=== PATIENT | male | born 1950 | race Caucasian/White ===

== ENCOUNTER 2024-11-29 06:09 | Inpatient (IN) ==
--- NOTE | 2024-11-29 06:20 | Emergency Department Note ---
Impression & Plan Atrial flutter with rapid ventricular response, Elevated troponin, On apixaban therapy, Hypokalemia, Low magnesium level ED Provider Note NAME: JASIEL PATTON AGE: 74 SEX: M : 1950 ARRIVES VIA: Walk-In INFORMANT: Patient ED PROVIDER(S): Seth Katz MD CHIEF COMPLAINT: Palpitations, h/o paroxysmal atrial fibrillation PLAN: Disposition: Admit MEDICAL DECISION MAKING: The patient is a pleasant 74 gentleman with a past medical history of paroxysmal atrial fibrillation on Eliquis with a history of a prescription metoprolol use as needed for recurrence of atrial fibrillation with RVR, hypertension, hypothyroidism who presents to the emergency department via walk-in for evaluation of acute onset of tachycardia in the 140s-160s which she noticed around 4 AM this morning on his smart watch. The patient is a [employer] and is visiting [employer] from his home in [place], [place], to attend the [employer] with his grandson. Patient denies any chest pain, shortness of breath, dizziness. Patient reports he forgot his prescription of metoprolol at home in [place] as he is traveling to [place] this weekend with his grandson to go to the [employer]. Patient reports that he admits his diet has been bad since he has been traveling eating a lot of takeout. He admits he may be dehydrated. He did have a couple of beers last night which is not typical for him. He reports having some indigestion yesterday but this resolved. He denies any recent illness including fevers, cough, congestion, GI or symptoms. On evaluation patient no acute distress, afebrile with heart rate in the 140s- 160s and suspected atrial flutter. Vital signs are otherwise stable. Appears clinically dry. EKG without overt acute ischemia. CXR negative for acute cardiopulmonary process per my personal preliminary review/interpretation. WBC, platelets within normal limits. H/H 11.9/34.4 without prior for comparison. Chemistry without metabolic acidosis. BUNs/creatinine 22 consistent with patient's clinically dry appearance. Magnesium 1.7 and potassium 2.8 with repletion provided. Initial high styptic troponin 84 with repeat 374 which is nonspecific and may be related to ongoing RVR since last night. Lipase is not elevated. TSH within normal limits. UA without evidence of infection. Patient was treated with IV hydration and subsequent 5 mg IV Lopressor x 3 but with heart rate remaining in the 140s. Given the patient's rising troponin and persistent RVR the patient ultimately did agree with plan for admission for further management. Case was discussed with Dr. [facility], who will evaluate the patient for admission. We agreed to proceed with initiation of diltiazem. 5 mg Diltiazem IV bolus with drip initiated. Of note, the patient did subsequently spontaneously cardiovert. Further management per admitting team. Triage Nursing notes reviewed and agree them. Prior/external medical records reviewed Vital Signs: reviewed Differential diagnosis: Premature contractions, electrolyte abnormality, cardiac dysrhythmia, thyroid dysfunction, pulmonary embolism, infection, gastrointestinal, as well as other pathologies. ER treatment provided: See below. Diagnostics interpreted by me: ECG: Suspected atrial flutter with RVR, 147 bpm, right bundle branch block, left anterior fascicular block, LVH, no overt ST elevation or depression, QTc 563, QRS 120. Cardiac Monitoring: An order for continuous cardiac monitoring was placed and demonstrated Suspected atrial flutter with RVR, 147 bpm, no ectopy. Laboratory studies: See below Imaging studies: See below Consultation(s): [facility] HPI: Per MDM. ROS: See above HPI for pertinent positives & negatives. A total of 10 systems reviewed and were otherwise negative. VITALS:See Below PHYSICAL EXAMINATION: GENERAL: Awake, alert, well-appearing, in no distress HENT: Normocephalic, atraumatic. Oropharynx with dry mucous membranes and otherwise unremarkable. EYES: Normal conjunctiva. Sclera non-icteric. NECK: Supple. No nuchal rigidity. FROM. No JVD. RESPIRATORY: Clear to auscultation. CARDIAC: Tachycardic rate, normal rhythm. Extremities warm and well perfused. Pulses equal. ABDOMEN: Soft, non-distended. No tenderness to palpation. No rebound or guarding. No masses. MUSCULOSKELETAL: Chest examination reveals no tenderness. The back is symmetrical on inspection without obvious abnormality. There is no CVA tenderness to palpation. No joint edema. LOWER EXTREMITIES: Calves are equal size bilaterally and non-tender. No edema. No discoloration. NEURO: Normal sensorium. No sensory or motor deficits noted. SKIN: No rash or jaundice noted. ED COURSE: Critical Care: I have personally spent greater than 45 minutes of critical care time in the direct management of this patient. This includes bedside care, interpretation of diagnostic studies, and testing, discussion with consultants, patient, and family members, and other required patient management activities. This 45 minutes is in excess of all separately billable procedures. Seth Katz MD Past Med/Surg History Problem List (Updated 11/29/24 @ 15:50 by Seth Katz MD) Low magnesium level (Acute) Hypokalemia (Acute) On apixaban therapy (Acute) Atrial flutter with rapid ventricular response (Acute) History of atrial fibrillation Atrial fibrillation Tachycardia Elevated troponin (Acute) Hypothyroidism Diabetes mellitus type 2, noninsulin dependent Hypertension Atrial fibrillation with rapid ventricular response Social History Smoking Status: Never smoker Preferred Language: Tajik Feels Safe at Home: Yes Allergies Allergies Allergy/AdvReac Type Severity Reaction Status Date / Time No Known Allergies Allergy Unverified 11/29/24 11:36 Home Meds Home Medications Medication Instructions Recorded Confirmed apixaban 5 mg tablet (Eliquis) 5 mg PO BID 11/29/24 11/29/24 atorvastatin 40 mg tablet 40 mg PO HS 11/29/24 11/29/24 levothyroxine 88 mcg tablet 88 mcg PO DAILY 11/29/24 11/29/24 (Synthroid) losartan 25 mg tablet 25 mg PO HS 11/29/24 11/29/24 metformin 1,000 mg tablet 1,000 mg PO BID 11/29/24 11/29/24 metoprolol succinate 25 mg 25 mg PO DAILY PRN Afib 11/29/24 11/29/24 tablet,extended release 24 hr tamsulosin 0.4 mg capsule 0.4 mg PO HS 11/29/24 11/29/24 tirzepatide 5 mg/0.5 mL 5 mg subcut WK 11/29/24 11/29/24 subcutaneous pen injector (Daniel) Results & Data (ED) Vital Signs Vital Signs - 24 hr 11/29/24 06:11 11/29/24 06:22 11/29/24 06:41 Temperature 36.4 C L Temperature Source Oral Pulse Rate 146 H 147 H Pulse Rate [Right Finger] Pulse Rhythm Pulse Rhythm [Right Finger] Pulse Strength [Right Finger] Respiratory Rate 20 Respiratory Effort / Characteristics Respiratory Depth Respiratory Pattern Blood Pressure 108/67 Blood Pressure [Right Arm] Blood Pressure Mean 80 Blood Pressure Mean [Right Arm] Blood Pressure Position [Right Arm] Pulse Oximetry 98 Oxygen Delivery Method Room Air Room Air Sepsis Recent Fever Within 48 Hours No Sepsis New/Unexplained Change in Mental Status No Sepsis Action Taken by Nursing No Action Required 11/29/24 06:41 11/29/24 06:41 11/29/24 07:45 Temperature Temperature Source Pulse Rate 144 H 148 H Pulse Rate [Right Finger] 144 H Pulse Rhythm Regular Pulse Rhythm [Right Finger] Irregular Pulse Strength [Right Finger] Normal Respiratory Rate 18 18 Respiratory Effort / Characteristics Non-Labored Spontaneous Respiratory Depth Normal Respiratory Pattern Regular Blood Pressure 113/65 Blood Pressure [Right Arm] 104/72 Blood Pressure Mean Blood Pressure Mean [Right Arm] 82 Blood Pressure Position [Right Arm] Lying Pulse Oximetry 98 98 Oxygen Delivery Method Room Air Room Air Sepsis Recent Fever Within 48 Hours Sepsis New/Unexplained Change in Mental Status Sepsis Action Taken by Nursing 11/29/24 08:10 11/29/24 08:49 11/29/24 08:55 Temperature Temperature Source Pulse Rate 143 H 142 H Pulse Rate [Right Finger] 142 H Pulse Rhythm Pulse Rhythm [Right Finger] Pulse Strength [Right Finger] Respiratory Rate 16 Respiratory Effort / Characteristics Respiratory Depth Respiratory Pattern Blood Pressure 105/78 95/62 L Blood Pressure [Right Arm] 95/68 L Blood Pressure Mean Blood Pressure Mean [Right Arm] 77 Blood Pressure Position [Right Arm] Pulse Oximetry 97 Oxygen Delivery Method Sepsis Recent Fever Within 48 Hours Sepsis New/Unexplained Change in Mental Status Sepsis Action Taken by Nursing 11/29/24 09:13 11/29/24 09:22 11/29/24 10:00 Temperature Temperature Source Pulse Rate 142 H 139 H Pulse Rate [Right Finger] 139 H Pulse Rhythm Pulse Rhythm [Right Finger] Pulse Strength [Right Finger] Respiratory Rate 16 Respiratory Effort / Characteristics Respiratory Depth Respiratory Pattern Blood Pressure 92/72 L 117/73 Blood Pressure [Right Arm] 106/74 Blood Pressure Mean Blood Pressure Mean [Right Arm] 84 Blood Pressure Position [Right Arm] Pulse Oximetry 100 Oxygen Delivery Method Room Air Sepsis Recent Fever Within 48 Hours Sepsis New/Unexplained Change in Mental Status Sepsis Action Taken by Nursing 11/29/24 10:28 Temperature Temperature Source Pulse Rate 136 H Pulse Rate [Right Finger] Pulse Rhythm Pulse Rhythm [Right Finger] Pulse Strength [Right Finger] Respiratory Rate Respiratory Effort / Characteristics Respiratory Depth Respiratory Pattern Blood Pressure Blood Pressure [Right Arm] Blood Pressure Mean Blood Pressure Mean [Right Arm] Blood Pressure Position [Right Arm] Pulse Oximetry Oxygen Delivery Method Sepsis Recent Fever Within 48 Hours Sepsis New/Unexplained Change in Mental Status Sepsis Action Taken by Nursing Laboratory Data Attestation: I reviewed the patient's lab results. 11/29/24 06:37 11/29/24 06:37 Lab Results 11/29/24 11/29/24 11/29/24 Range/Units 06:37 07:54 08:52 WBC 6.94 (4.8-10.8) K/ul RBC 3.93 L (4.70-6.10) M/uL Hgb 11.9 L (14.0-18.0) g/dl Hct 34.4 L (42.0-52.0) % MCV 87.5 (80.0-100.0) fL MCH 30.3 (25.0-34.0) pg MCHC 34.6 (32.0-36.0) g/dL RDW Std Deviation 38.6 (36.4-46.3) fL RDW Coeff of Meron 11.9 (11.5-14.5) % Plt Count 187 (130-400) K/uL MPV 10.2 (9.4-12.4) fL Immature Gran % (Auto) 0.1 % Neut % (Auto) 49.5 % Lymph % (Auto) 35.6 % Rabun % (Auto) 9.2 % Eos % (Auto) 5.2 % Baso % (Auto) 0.4 % Neut # (Auto) 3.43 (1.40-6.50) K/uL Lymph # (Auto) 2.47 (1.20-3.40) K/uL Rabun # (Auto) 0.64 H (0.11-0.59) K/uL Eos # (Auto) 0.36 (0.00-0.50) K/uL Baso # (Auto) 0.03 (0.00-0.20) K/uL Immature Gran # (Auto) 0.01 (0.01-0.20) K/uL PT 10.7 (9.0-12.0) Seconds INR 1.0 (0.9-1.1) Sodium 136 (136-145) mmol/L Potassium 3.8 (3.5-5.1) mmol/L Chloride 103 (98-107) mmol/L Carbon Dioxide 27 (21-32) mmol/L Anion Gap 6 (3-11) BUN 30 H (6-23) mg/dl Creatinine 1.36 (0.6-1.4) mg/dl Est Cr Clr Drug Dosing 51.6 ml/min eGFR 55.29 BUN/Creatinine Ratio 22.1 H (10-20) Glucose 142 H (70-99(Fasting)) mg/dl Calcium 9.2 (8.6-10.3) mg/dl Phosphorus 3.7 (2.5-4.9) mg/dl Magnesium 1.7 (1.7-2.4) mg/dl Total Bilirubin 0.4 (0.2-1.0) mg/dl AST 20 (13-39) U/L ALT 15 (7-52) U/L Alkaline Phosphatase 74 (34-104) U/L Troponin I High Sens 84.8 H* 375.4 H* D (0-20) pg/ml Total Protein 6.6 (6.0-8.3) gm/dl Albumin 4.2 (3.4-5.0) gm/dl Globulin 2.4 L (2.5-4.0) gm/dl Albumin/Globulin Ratio 1.8 (0.9-2) Lipase 72 (11-82) U/L TSH 1.786 (0.300-4.500) uIu/ml Urine Color Yellow Urine Appearance Clear (Clear) Urine pH 6.0 (4.5-7.5) Ur Specific [place] 1.006 (1.000-1.030) Urine Protein Negative (Negative) Urine Glucose (UA) Negative (Negative) Urine Ketones Negative (Negative) Urine Blood Negative (Negative) Urine Nitrite Negative (Negative) Urine Bilirubin Negative (Negative) Urine Urobilinogen Negative (Negative) Ur Leukocyte Esterase Negative (Negative) Urine Comment Administered Medications Discontinued Medications Apixaban (Apixaban 5 Mg Tablet) 5 mg PO ONE ONE Stop: 11/29/24 10:49 Last Admin: 11/29/24 11:36 Dose: 5 mg Documented By: MURRAY Diltiazem HCl (Diltiazem Hcl 5 Mg/Ml 5 Ml Vial) 5 mg IV NOW STA Stop: 11/29/24 10:04 Last Admin: 11/29/24 11:21 Dose: Not Given Documented By: MURRAY Sodium Chloride (Nss) 500 mls @ 999 mls/hr IV .Q31M ONE Stop: 11/29/24 06:49 Last Infusion: 11/29/24 07:43 Dose: Infused Documented By: octavia Admin: 11/29/24 06:45 Dose: 999 mls/hr Documented By: DINAH Sodium Chloride (Nss) 500 mls @ 999 mls/hr IV .Q31M ONE Stop: 11/29/24 08:04 Last Infusion: 11/29/24 08:54 Dose: Infused Documented By: octavia Admin: 11/29/24 07:45 Dose: 999 mls/hr Documented By: octavia Magnesium Sulfate/Dextrose (Magnesium Sulfate / D5w) 1 gm in 100 mls @ 100 mls/hr IV NOW STA Stop: 11/29/24 08:34 Last Infusion: 11/29/24 09:01 Dose: Infused Documented By: octavia Admin: 11/29/24 07:44 Dose: 100 mls/hr Documented By: octavia Sodium Chloride (Nss) 1,000 mls @ 999 mls/hr IV .Q1H1M ONE Stop: 11/29/24 10:06 Last Infusion: 11/29/24 10:22 Dose: Infused Documented By: octavia Admin: 11/29/24 09:13 Dose: 999 mls/hr Documented By: octavia Diltiazem HCl 125 mg/ Dextrose 125 mls @ 5 mls/hr IV .Q24H CRUZ; Protocol Stop: 12/29/24 10:14 Last Admin: 11/29/24 11:21 Dose: Not Given Documented By: MURRAY Insulin Aspart (Insulin Aspart Per Unit Charge) 0 units SC ACHS CRUZ Stop: 12/29/24 12:34 Last Admin: 11/29/24 13:51 Dose: Not Given Documented By: MURRAY Levothyroxine Sodium (Levothyroxine Sodium 88 Mcg Tablet) 88 mcg PO ONCE ONE Stop: 11/29/24 10:50 Last Admin: 11/29/24 11:36 Dose: 88 mcg Documented By: MURRAY Metoprolol Succinate (Metoprolol Succ 25mg Ext Rel Tab) 25 mg PO NOW STA Stop: 11/29/24 10:49 Last Admin: 11/29/24 11:36 Dose: 25 mg Documented By: MURRAY Metoprolol Tartrate (Metoprolol Tartrate 1 Mg/Ml Vial) 5 mg IV NOW STA Stop: 11/29/24 07:35 Last Admin: 11/29/24 07:45 Dose: 5 mg Documented By: octavia Metoprolol Tartrate (Metoprolol Tartrate 1 Mg/Ml Vial) 5 mg IV NOW STA Stop: 11/29/24 08:13 Last Admin: 11/29/24 08:49 Dose: 5 mg Documented By: octavia Metoprolol Tartrate (Metoprolol Tartrate 1 Mg/Ml Vial) 5 mg IV NOW STA Stop: 11/29/24 09:07 Last Admin: 11/29/24 09:13 Dose: 5 mg Documented By: octavia Miscellaneous (Stat Iv Infusion Titration Per Protocol) 1 each N/A NOW STA Stop: 11/29/24 10:04 Last Admin: 11/29/24 11:22 Dose: Not Given Documented By: MURRAY Potassium Chloride (Potassium Chloride Crtab 20 Meq Tabcr) 20 meq PO NOW STA Stop: 11/29/24 07:36 Last Admin: 11/29/24 07:44 Dose: 20 meq Documented By: octavia Imaging Data Radiologist's Impression: Chest X-Ray 11/29/24 06:18 EXAM: XR chest 1V portable CLINICAL HISTORY: Chest pain, nonspecific TECHNIQUE: An X-ray image of the chest was obtained in the AP projection. COMPARISON: No prior studies are available for comparison. FINDINGS: Pulmonary Parenchyma: There is no evidence of consolidation, collapse, or focal opacities. No pulmonary nodules are identified. There is no evidence of pleural effusion or pleural thickening. Heart and Mediastinum: The heart size and shape are normal. There is no mediastinal widening or masses. No hilar or mediastinal lymphadenopathy is present. Bony Thorax: The bony thorax appears intact, without fractures or deformities. Soft Tissues: The soft tissues overlying the chest wall are unremarkable. IMPRESSION: No acute cardiopulmonary abnormalities are identified. Electronically signed by Alf Bee 11-29-2024 07:27 AM Discharge Plan Visit Data Chief Complaint: Arrhythmia/Palpitations Stated Complaint: RAPID HEART BEAT ED Provider: Seth Katz Discharge Problem: Atrial flutter with rapid ventricular response, Elevated troponin, On apixaban therapy, Hypokalemia, Low magnesium level Patient Disposition: Admitted As Inpatient Condition: Serious Discharge Instructions Interventions: ED Discharge Assessment Last Done: 11/29/24 14:57
[2024-11-29] MEDS: SODIUM CHLORIDE 0.9% 500 ML IV ONE ×2 (06:45→07:45)
[2024-11-29 06:52] LABS: Hematocrit (blood only) 34.4 % (42.0-52.0); Hemoglobin 11.9 g/dl (14.0-18.0); Immature Granulocytes # (auto) 0.01 K/uL (0.01-0.20); Immature Granulocytes % (auto) 0.1 %; Mean Corpuscular Hemoglobin 30.3 pg (25.0-34.0); Mean Corpuscular Volume 87.5 fL (80.0-100.0); Platelet Count 187 K/uL (130-400); RDW Standard Deviation 38.6 fL (36.4-46.3); Red Blood Count 3.93 M/uL (4.70-6.10); White Blood Count 6.94 K/ul (4.8-10.8)
[2024-11-29 07:13] LABS: Alanine Aminotransferase 15.0 U/L (7-52); Albumin Globulin Ratio 1.8 (0.9-2); Albumin Level 4.2 gm/dl (3.4-5.0); Alkaline Phosphatase 74.0 U/L (34-104); Anion Gap 6.0 (3-11); Bilirubin,Total 0.4 mg/dl (0.2-1.0); Blood Urea Nitrogen 30.0 mg/dl (6-23); Calcium 9.2 mg/dl (8.6-10.3); Carbon Dioxide 27.0 mmol/L (21-32); Chloride 103.0 mmol/L (98-107); Creatinine Clr Calc Pharmacy 51.6 ml/min; Globulin 2.4 gm/dl (2.5-4.0); Glucose 142.0 mg/dl (70-99(Fasting)); Lipase 72.0 U/L (11-82); Magnesium 1.7 mg/dl (1.7-2.4); Potassium 3.8 mmol/L (3.5-5.1); Sodium 136.0 mmol/L (136-145); Total Protein 6.6 gm/dl (6.0-8.3)
--- NOTE | 2024-11-29 07:28 | XRay Report ---
EXAM: XR chest 1V portable CLINICAL HISTORY: Chest pain, nonspecific TECHNIQUE: An X-ray image of the chest was obtained in the AP projection. COMPARISON: No prior studies are available for comparison. FINDINGS: Pulmonary Parenchyma: There is no evidence of consolidation, collapse, or focal opacities. No pulmonary nodules are identified. There is no evidence of pleural effusion or pleural thickening. Heart and Mediastinum: The heart size and shape are normal. There is no mediastinal widening or masses. No hilar or mediastinal lymphadenopathy is present. Bony Thorax: The bony thorax appears intact, without fractures or deformities. Soft Tissues: The soft tissues overlying the chest wall are unremarkable. IMPRESSION: No acute cardiopulmonary abnormalities are identified. Electronically signed by Alf Bee 11-29-2024 07:27 AM
[2024-11-29 07:33] LABS: INR 1.0 (0.9-1.1); Prothrombin Time 10.7 Seconds (9.0-12.0)
[2024-11-29] MEDS: MAGNESIUM SULFATE / D5W 1 GM/100 ML BAG IV STA (07:44)
[2024-11-29] MEDS: POTASSIUM CHLORIDE CRTAB 20 MEQ TABCR PO STA (07:44)
[2024-11-29] MEDS: METOPROLOL TARTRATE 1 MG/ML VIAL IV STA ×3 (07:45→09:13)
[2024-11-29 08:05] LABS: Appearance Urine Clear (Clear); Glucose Urine UA Negative (Negative)
[2024-11-29] MEDS: SODIUM CHLORIDE 0.9% 1,000 ML IV ONE (09:13)
[2024-11-29 10:12] LABS: Thyroid Stimulating Hormone 1.786 uIu/ml (0.300-4.500)
--- NOTE | 2024-11-29 10:20 | History & Physical Report ---
Date of Service November 29, 2024 Assessment & Plan (1) Tachycardia: (2) History of atrial fibrillation: (3) Elevated troponin: Plan: 74 year old man with history of Afib, Diabetes mellitus, hypertension, hodgkin's lymphoma many years ago and was treated with remission who resides in [place] but in town for the game who presents with palpitations Labs notable for Trop 84->375, Hb 11.9, Cr 1.36 EKG noted tachycardia with HR of 147, RBBB No old EKG available to compare Got IV lopressor x 3 doses in ER without improvement ER ordered IV cardizem drip which is yet to start While evaluating patient, HR improved to 80s after using the bathroom. Looks sinus on monitor Will hold off cardizem drip for now Give Metoprolol succinate 25mg daily and monitor Will get repeat EKG Continue DIAGNOSTIC ASSISTANT eliquis 5mg BID Troponin elevation likely due to rapid ventricular rate. However, no prior EKG to compare other changes noted on EKG Will repeat EKG now rate is better controlled Trend troponin Stated he had had cardiac workup at [facility] and besides Afib, was not told of any cardiac issues Cardiology consult TTE (4) Hypertension: Plan: Takes losartan at home BP was low normal with SBP eugene at 92 This is likely due to RVR. 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 Monitor renal function (6) Hypothyroidism: Plan: TSH is 1.786 Stable Continue DIAGNOSTIC ASSISTANT levothyroxine 88mcg daily DVT ppx- On eliquis Code status - Full I spent a total of 75 minutes coordinating, documenting and providing care for this patient excluding time spent in performance of separately billed services History of Present Illness Chief Complaint: Palpitations Primary Care Provider: NO PCP 74 year old man with history of Afib, Diabetes mellitus, hypertension, hodgkin's lymphoma many years ago and was treated with remission who resides in [place] but in town for the game who presents with palpitations. Reports he woke up with palpitations at 4am with HR in 140-150s noted on his apple watch. He denied any chest pain, dizziness, shortness of breath, nausea, vomiting. Denied any other complaints on ROS Reports he is adherent to his medications. Stated his metoprolol succinate 25mg is as needed and has not needed it for over 1 year Recently started on tamsulosin for nocturia in the past few days which he will like to hold for now Denied smoking, alcohol or illicit drug use Denied history of stroke, heart attack. Reports history of knee surgery Denied any family history of stroke, heart attack Denied any known allergies Allergies Allergy/AdvReac Type Severity Reaction Status Date / Time No Known Allergies Allergy Unverified 11/29/24 11:36 Home Medications Medication Instructions Recorded Confirmed Type apixaban 5 mg tablet (Eliquis) 5 mg PO BID 11/29/24 11/29/24 History atorvastatin 40 mg tablet 40 mg PO HS 11/29/24 11/29/24 History levothyroxine 88 mcg tablet 88 mcg PO DAILY 11/29/24 11/29/24 History (Synthroid) losartan 25 mg tablet 25 mg PO HS 11/29/24 11/29/24 History metformin 1,000 mg tablet 1,000 mg PO BID 11/29/24 11/29/24 History metoprolol succinate 25 mg 25 mg PO DAILY PRN Afib 11/29/24 11/29/24 History tablet,extended release 24 hr tamsulosin 0.4 mg capsule 0.4 mg PO HS 11/29/24 11/29/24 History tirzepatide 5 mg/0.5 mL 5 mg subcut WK 11/29/24 11/29/24 History subcutaneous pen injector ([place]) Past Med/Surg History Problem List (Updated 11/29/24 @ 15:08 by Helga Zhu PA-C) History of atrial fibrillation Atrial fibrillation Tachycardia Elevated troponin Hypothyroidism Diabetes mellitus type 2, noninsulin dependent Hypertension Atrial fibrillation with rapid ventricular response Social History Smoking Status: Never smoker Preferred Language: Macedonian Feels Safe at Home: Yes Review of Systems Review of Systems: All systems reviewed & are unremarkable except as noted in HPI & below Physical Exam Constitutional: + well hydrated; no acute distress Eyes: PERRL, conjunctivae normal, anicteric sclerae ENMT: external ear and nose normal, oropharynx normal Respiratory: normal respiratory effort, lungs clear to auscultation Cardiovascular: Rate/Rhythm: + tachycardic S1 S2 Gastrointestinal (Abdomen): normal bowel sounds, soft, nontender, no hepatosplenomegaly Musculoskeletal: no cyanosis or clubbing, extremities motor strength 5/5 No pedal edema Neurologic: PERRL, EOMI, accommodation nl, no face palsy, no dysarthria Psychiatric: A+Ox3, euthymic affect Results & Data Results & Data Vital Signs (Past 12 Hours) Vital Signs Temp Pulse Pulse Resp BP BP Pulse Ox 11/29/24 09:22 139 H 117/73 11/29/24 09:13 142 H 92/72 L 11/29/24 08:55 142 H 95/62 L 11/29/24 08:49 143 H 105/78 11/29/24 08:10 142 H 16 95/68 L 97 11/29/24 07:45 148 H 113/65 11/29/24 06:41 144 H 18 98 11/29/24 06:41 144 H 18 104/72 98 11/29/24 06:41 11/29/24 06:22 147 H 11/29/24 06:11 36.4 C L 146 H 20 108/67 98 O2 Del Method 11/29/24 09:22 11/29/24 09:13 11/29/24 08:55 11/29/24 08:49 11/29/24 08:10 11/29/24 07:45 11/29/24 06:41 Room Air 11/29/24 06:41 Room Air 11/29/24 06:41 Room Air 11/29/24 06:22 11/29/24 06:11 Room Air Laboratory Results Abnormal lab results 11/29/24 11/29/24 Range/Units 06:37 08:52 RBC 3.93 L (4.70-6.10) M/uL Hgb 11.9 L (14.0-18.0) g/dl Hct 34.4 L (42.0-52.0) % [place] # (Auto) 0.64 H (0.11-0.59) K/uL BUN 30 H (6-23) mg/dl BUN/Creatinine Ratio 22.1 H (10-20) Glucose 142 H (70-99(Fasting)) mg/dl Troponin I High Sens 84.8 H* 375.4 H* D (0-20) pg/ml Globulin 2.4 L (2.5-4.0) gm/dl Diagnostic Findings XR chest 1V portable CLINICAL HISTORY: Chest pain, nonspecific TECHNIQUE: An X-ray image of the chest was obtained in the AP projection. COMPARISON: No prior studies are available for comparison. FINDINGS: Pulmonary Parenchyma: There is no evidence of consolidation, collapse, or focal opacities. No pulmonary nodules are identified. There is no evidence of pleural effusion or pleural thickening. Heart and Mediastinum: The heart size and shape are normal. There is no mediastinal widening or masses. No hilar or mediastinal lymphadenopathy is present. Bony Thorax: The bony thorax appears intact, without fractures or deformities. Soft Tissues: The soft tissues overlying the chest wall are unremarkable. IMPRESSION: No acute cardiopulmonary abnormalities are identified. Code Status & VTE Plan Code Status Full Code
[2024-11-29] MEDS: STAT IV Infusion **Titration per Protocol STA (11:22)
[2024-11-29] MEDS: LEVOTHYROXINE SODIUM 88 MCG TABLET PO ONE (11:36)
[2024-11-29] MEDS: METOPROLOL SUCC 25MG EXT REL TAB PO STA (11:36)
[2024-11-29] MEDS: APIXABAN 5 MG TABLET PO ONE (11:36)
[2024-11-29] MEDS ORDERED: DEXTROSE 50% 50 ML SYRINGE IV PRN (12:35)
[2024-11-29] MEDS ORDERED: GLUCOSE 40% GEL 15 GM TUBE PO PRN (12:35)
[2024-11-29] MEDS ORDERED: CARBOHYDRATES FOR HYPOGLYCEMIA PO PRN (12:35)
[2024-11-29] MEDS ORDERED: GLUCAGON FOR INJ 1 MG VIAL SQ PRN (12:35)
[2024-11-29] MEDS ORDERED: GLUCOSE 10 TAB/TUBE PO PRN (12:35)
[2024-11-29] MEDS: INSULIN ASPART PER UNIT CHARGE SC SCH (13:51)
--- NOTE | 2024-11-29 14:39 | XCELERA ---
[id number]
--- NOTE | 2024-11-29 14:45 | Cardiology Consultation ---
Date of Consultation November 29, 2024 Assessment & Plan (1) Atrial fibrillation: (2) Elevated troponin: (3) Hypertension: (4) Diabetes mellitus type 2, noninsulin dependent: Plan 74 year old male with past medical history of paroxysmal afib, HTN, DM 2, dyslipidemia, Hodgkin's Lymphoma s/p radiation therapy in remission, hypothyroidism, who presents to ED due to rapid heart rate. He is in town visiting for football game. EKG with afib with RVR, given metoprolol IVP with spontaneous conversion to NSR with controlled rates. Troponin elevated and increased from 84 to 375. - currently maintaining sinus rhythm with controlled rates - STAT repeat troponin elevated at 463, consider ischemic workup with cardiac cath - denies chest pain, echo with normal LVEF, mild valvular disease, no WMA, elevated troponin may be due to demand ischemia in setting of afib with RVR, however has risk factors for CAD - continue monitoring on telemetry - continue Eliquis 5 mg twice daily - can continue metoprolol PRN - discussed with patient to stay well hydrated - follow up with PCP/cardiology in [place] Case discussed with attending physician, further recommendations per Dr. Baker. I spent a total of 45 minutes on the date of service in preparation, delivery, and documentation of the care provided to this patient excluding any time spent in the performance of separately billed services. This visit was a split-shared visit with the substantial portion of the decision making performed by the supervising court manager/billing provider. [facility] Supervising Physician Co-Signing Physician Notes Patient seen and examined. Past medical history, surgical history, social history and family history have been reviewed. The medical record and all the above studies have been reviewed. Case DW CHAN including management. PAF with Atrial fibrillation with RVR -> sinus rhythm Elevated troponin - could be demand ischemia but obstructive CAD is a possibility Hypertension Diabetes mellitus type 2, noninsulin dependent Hypothyroidism card cath DW patient -> procedure, risks, benefits, alternatives reviewed with patient including worsening of AMI and associated sequelae -> patient refused and wants to sign out against medical advice metoprolol statin ASA Eliquis if patient signs out against medical advise -> f/u with primary court manager History of Present Illness Reason for Consultation: Afib with RVR, elevated troponin Requesting Physician: Hospitalist Attending Physician: Ani Jaffe MD History of Present Illness 74 year old male with past medical history of paroxysmal afib, HTN, DM 2, dyslipidemia, Hodgkin's Lymphoma s/p radiation therapy in remission, hypothyroidism, who presents to ED due to rapid heart rate. States he lives in [place] and flew into town for the football game. Did not sleep much from travel and felt that he was dehydrated. Walked 7-8 miles yesterday. Last night woke up with elevated heart rate, 140-150s per watch, palpitations. History of afib and knew he was in afib. Last episode of afib 1.5 years ago, before that 10 years ago. In ED, EKG with afib with RVR. Troponin elevated, 84 to 375. Given meto prolol IVP x3. Spontaneously converted to sinus rhythm with rates in 70s. Repeat EKG with NSR, RBBB, left anterior fascicular block. Admitted for further workup due to elevated troponin. On exam today, he states he is feeling much better. He is eager to leave. Denies chest pain, palpitations, shortness of breath, lightheadedness, edema. Is compliant with all medications, is on Eliquis due to history of afib. Has metoprolol PRN, but did not bring it with him. Notes recent workup at [facility] cardiology with nuclear stress test that was reportedly normal, told to return in 3 years, no records available. Denies tobacco, alcohol, illicit drug use. Allergies Allergy/AdvReac Type Severity Reaction Status Date / Time No Known Allergies Allergy Unverified 11/29/24 11:36 Home Medications Medication Instructions Recorded Confirmed Type apixaban 5 mg tablet (Eliquis) 5 mg PO BID 11/29/24 11/29/24 History atorvastatin 40 mg tablet 40 mg PO HS 11/29/24 11/29/24 History levothyroxine 88 mcg tablet 88 mcg PO DAILY 11/29/24 11/29/24 History (Synthroid) losartan 25 mg tablet 25 mg PO HS 11/29/24 11/29/24 History metformin 1,000 mg tablet 1,000 mg PO BID 11/29/24 11/29/24 History metoprolol succinate 25 mg 25 mg PO DAILY PRN Afib 11/29/24 11/29/24 History tablet,extended release 24 hr tamsulosin 0.4 mg capsule 0.4 mg PO HS 11/29/24 11/29/24 History tirzepatide 5 mg/0.5 mL 5 mg subcut WK 11/29/24 11/29/24 History subcutaneous pen injector (Praneethunarben) Patient History Social History Smoking Status: Never smoker Preferred Language: Portuguese Feels Safe at Home: Yes Review of Systems Review of Systems: CONSTITUTIONAL: No change in weight, No weakness, No fatigue and No fevers, No sweats or chills. PULMONARY: No cough, sputum, or hemoptysis, No wheezing, No shortness of breath and No recent change in breathing. CARDIOVASCULAR: No chest pain, No dyspnea on exertion, No edema, No palpitations and No syncope. GASTROINTESTINAL: No abdominal pain, No change in bowel habits, No significant heartburn, No nausea, No vomiting, No diarrhea, No constipation, No blood in stools or black tarry stools. No dysphagia. HEMATOLOGIC: No abnormal bleeding and No bruising. NEUROLOGICAL: Normal balance, No headaches and No weakness. Physical Exam Physical Exam: General: No acute distress. A+Ox3. HEENT: Normocephalic. Atraumatic. PERRL. EOMI. Conjunctiva and sclera clear. NECK: No carotid bruits. No JVD. Carotid upstrokes are brisk. Heart: RRR. S1 and S2 noted. No murmur. No rubs or gallops. PMI non displaced. Lungs: Clear to auscultation. No wheezes. No rhonchi. No rales. Abdomen: Normal bowel sounds. Soft. Nontender. No masses or organomegaly. No abdominal bruits. Extremities: No edema. No clubbing or cyanosis. Pulses: radial=2/4, posterior tibial=2/4, dorsalis pedis = 2/4. NEURO: No focal deficits. PSYCH: Appropriate affect and insight. Results & Data Vital Signs (Past 12 Hours) Vital Signs Temp Pulse Pulse Resp BP BP Pulse Ox 11/29/24 13:00 86 20 94/59 L 98 11/29/24 12:00 79 17 99 11/29/24 12:00 111/60 11/29/24 11:54 78 11 L 98 11/29/24 11:19 118/66 11/29/24 11:09 81 15 100 11/29/24 10:28 136 H 11/29/24 10:00 139 H 16 106/74 100 11/29/24 09:22 139 H 117/73 11/29/24 09:13 142 H 92/72 L 11/29/24 08:55 142 H 95/62 L 11/29/24 08:49 143 H 105/78 11/29/24 08:10 142 H 16 95/68 L 97 11/29/24 07:45 148 H 113/65 11/29/24 06:41 144 H 18 98 11/29/24 06:41 144 H 18 104/72 98 11/29/24 06:41 11/29/24 06:22 147 H 11/29/24 06:11 36.4 C L 146 H 20 108/67 98 O2 Del Method 11/29/24 13:00 11/29/24 12:00 11/29/24 12:00 11/29/24 11:54 11/29/24 11:19 11/29/24 11:09 11/29/24 10:28 11/29/24 10:00 Room Air 11/29/24 09:22 11/29/24 09:13 11/29/24 08:55 11/29/24 08:49 11/29/24 08:10 11/29/24 07:45 11/29/24 06:41 Room Air 11/29/24 06:41 Room Air 11/29/24 06:41 Room Air 11/29/24 06:22 11/29/24 06:11 Room Air Laboratory Results Cardiac Enzymes 11/29/24 11/29/24 Range/Units 06:37 08:52 AST 20 (13-39) U/L Troponin I High Sens 84.8 H* 375.4 H* D (0-20) pg/ml Coagulation 11/29/24 Range/Units 06:37 PT 10.7 (9.0-12.0) Seconds CBC 11/29/24 Range/Units 06:37 WBC 6.94 (4.8-10.8) K/ul RBC 3.93 L (4.70-6.10) M/uL Hgb 11.9 L (14.0-18.0) g/dl Hct 34.4 L (42.0-52.0) % Plt Count 187 (130-400) K/uL Neut # (Auto) 3.43 (1.40-6.50) K/uL Lymph # (Auto) 2.47 (1.20-3.40) K/uL [place] # (Auto) 0.64 H (0.11-0.59) K/uL Eos # (Auto) 0.36 (0.00-0.50) K/uL Baso # (Auto) 0.03 (0.00-0.20) K/uL Comprehensive Metabolic Panel 11/29/24 Range/Units 06:37 Sodium 136 (136-145) mmol/L Potassium 3.8 (3.5-5.1) mmol/L Chloride 103 (98-107) mmol/L Carbon Dioxide 27 (21-32) mmol/L BUN 30 H (6-23) mg/dl Creatinine 1.36 (0.6-1.4) mg/dl Glucose 142 H (70-99(Fasting)) mg/dl Calcium 9.2 (8.6-10.3) mg/dl AST 20 (13-39) U/L ALT 15 (7-52) U/L Alkaline Phosphatase 74 (34-104) U/L Total Protein 6.6 (6.0-8.3) gm/dl Albumin 4.2 (3.4-5.0) gm/dl Intake and Output 11/29/24 11/29/24 11/29/24 06:59 14:59 22:59 Intake Total 2099 Balance 2099 Intake: IV 2099 Magnesium Sulfate / D5w 1 gm In 100 / 100 100 ml @ 100 mls/hr IV NOW STA Rx#:[id number] Sodium Chloride 0.9% 1,000 ml @ 1000 / 1000 999 mls/hr IV .Q1H1M ONE Rx#: [id number] Sodium Chloride 0.9% 500 ml @ 1000 / 1000 999 mls/hr IV .Q31M ONE Rx#: [id number] Other: Weight 74.3 kg Weight Measurement Method Chair Scale Diagnostic Findings Echo 11/29/24: LVEF 55-60%, mild AR, no WMA PG Care Time/CCT Total # of Minutes Spent Total Time Spent with Patient: Total time spent is greater than 50% in coordination of care (as documented) at patient's floor/unit and/or counseling patient: [place] [address] IN/OBS CONSULT LVL 5,80M Patient Type New Medical Decision Making High Complexity Diagnoses Paroxysmal atrial fibrillation I48.0 Atrial fibrillation type: paroxysmal Elevated troponin R79.89 Primary hypertension I10 Hypertension type: primary hypertension Diabetes mellitus type 2, noninsulin dependent E11.9 (1) Atrial fibrillation Atrial fibrillation type: paroxysmal Qualified Code(s): I48.0 - Paroxysmal atrial fibrillation (3) Hypertension Hypertension type: primary hypertension Qualified Code(s): I10 - Essential (primary) hypertension
--- NOTE | 2024-11-29 15:25 | Discharge Summary ---
Date of Service November 29, 2024 Admission HPI Per Admitting Provider 74 year old man with history of Afib, Diabetes mellitus, hypertension, hodgkin's lymphoma many years ago and was treated with remission who resides in [place] but in town for the game who presents with palpitations. Reports he woke up with palpitations at 4am with HR in 140-150s noted on his apple watch. He denied any chest pain, dizziness, shortness of breath, nausea, vomiting. Denied any other complaints on ROS Reports he is adherent to his medications. Stated his metoprolol succinate 25mg is as needed and has not needed it for over 1 year Recently started on tamsulosin for nocturia in the past few days which he will like to hold for now Denied smoking, alcohol or illicit drug use Denied history of stroke, heart attack. Reports history of knee surgery Denied any family history of stroke, heart attack Denied any known allergies Admission Exam Per Admitting Provider Constitutional: + well hydrated; no acute distress Eyes: PERRL, conjunctivae normal, anicteric sclerae ENMT: external ear and nose normal, oropharynx normal Respiratory: normal respiratory effort, lungs clear to auscultation Cardiovascular: Rate/Rhythm: + tachycardic S1 S2 Gastrointestinal (Abdomen): normal bowel sounds, soft, nontender, no hepatosplenomegaly Musculoskeletal: no cyanosis or clubbing, extremities motor strength 5/5 No pedal edema Neurologic: PERRL, EOMI, accommodation nl, no face palsy, no dysarthria Psychiatric: A+Ox3, euthymic affect Principal Diagnosis Tachycardia AFib Elevated trop Discharge Exam Constitutional + well hydrated; no acute distress Eyes PERRL, conjunctivae normal, anicteric sclerae ENMT external ear and nose normal, oropharynx normal Respiratory normal respiratory effort, lungs clear to auscultation Cardiovascular Rate/Rhythm: regular rate and regular rhythm Gastrointestinal (Abdomen) normal bowel sounds, soft, nontender, no hepatosplenomegaly Musculoskeletal no cyanosis or clubbing, extremities motor strength 5/5 Neurologic PERRL, EOMI, accommodation nl, no face palsy, no dysarthria Psychiatric A+Ox3, euthymic affect Discharge Data Allergies Allergy/AdvReac Type Severity Reaction Status Date / Time No Known Allergies Allergy Unverified 11/29/24 11:36 Consultations 11/29/24 10:03 ED Decision to Admit Stat 11/29/24 10:56 Consult Cardiology Stat Hospital Course (1) Tachycardia: (2) History of atrial fibrillation: (3) Elevated troponin: 74 year old man with history of Afib, Diabetes mellitus, hypertension, hodgkin's lymphoma many years ago and was treated with remission who resides in [place] but in town for the game who presents with palpitations Labs notable for Trop 84->375, Hb 11.9, Cr 1.36 EKG noted tachycardia with HR of 147, RBBB No old EKG available to compare Got IV lopressor x 3 doses in ER without improvement Was admitted for management of Afib with RVR, elevated trop Heart rhythm improved to sinus rhythm Troponin elevation likely due to rapid ventricular rate. 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 (6) Hypothyroidism: TSH is 1.786 Stable Continue PRODUCTION SHIFT SUPERVISOR levothyroxine 88mcg daily Total Time Total Time Spent Total Time Spent (In Minutes): 45 Total Time Includes: Examination of the Patient, Discharge Planning and Medication Reconciliation Discharge Plan Discharge Items Patient Disposition: Against Medical Advice Reason For Visit: PALPITATIONS Activity: Resume your previous activity Non-emergency contact: Primary Care Provider and Science Interpreter Follow-up/Referrals: PCP,NO [Primary Care Provider] - Pending Studies at Discharge: No Stand-Alone Forms: My LoopMe, Smoking Cessation Medications and DC Order Prescriptions: Continued levothyroxine [Synthroid] 88 mcg tablet 88 mcg PO DAILY tamsulosin 0.4 mg capsule 0.4 mg PO HS Eliquis 5 mg tablet 5 mg PO BID Mounjaro 5 mg/0.5 mL pen injector 5 mg SUBCUT WK atorvastatin 40 mg tablet 40 mg PO HS metformin 1,000 mg tablet 1,000 mg PO BID losartan 25 mg tablet 25 mg PO HS metoprolol succinate 25 mg tablet extended release 24 hr 25 mg PO DAILY PRN (Reason: Afib) Discharge Orders: Left Against Medical Advice (Routine); Ordered 11/29/24 Ordered By: Ani Jaffe Admission Data Admit Date/Time: 11/29/24 10:56 Attending Provider: Ani Jaffe I. Admit Provider: Ani Jaffe I. Primary Care Provider: PCP,NO Other Providers: Theodore Baker; Ani aJffe I.
[2024-11-29] MEDS ORDERED: APIXABAN 5 MG TABLET PO SCH (21:00)
[2024-11-29] MEDS ORDERED: ATORVASTATIN 40 MG TAB PO SCH (21:00)
[2024-11-30] MEDS ORDERED: LEVOTHYROXINE SODIUM 88 MCG TABLET PO SCH (06:30)
[2024-11-30] MEDS ORDERED: METOPROLOL SUCC 25MG EXT REL TAB PO PRN (09:00)
--- NOTE | 2024-11-30 20:57 | Electrocardiogram Report ---
Test Reason : Blood Pressure : */* mmHG Vent. Rate : 147 BPM Atrial Rate : 147 BPM P-R Int : 118 ms QRS Dur : 120 ms QT Int : 336 ms P-R-T Axes : * -73 58 degrees QTcB Int : 526 ms Atrial flutter Right bundle branch block Left anterior fascicular block Bifascicular block Minimal voltage criteria for LVH, may be normal variant ( R in aVL ) Abnormal ECG No previous ECGs available Confirmed by Rob Bhakta ([id number]) on 11/30/2024 8:57:29 PM Referred By: REFERRED SELF Confirmed By: Rob Bhakta
--- NOTE | 2024-11-30 20:58 | Electrocardiogram Report ---
Test Reason : Blood Pressure : */* mmHG Vent. Rate : 75 BPM Atrial Rate : 75 BPM P-R Int : 168 ms QRS Dur : 128 ms QT Int : 386 ms P-R-T Axes : 72 -58 27 degrees QTcB Int : 431 ms Normal sinus rhythm Right bundle branch block Left anterior fascicular block Bifascicular block Abnormal ECG When compared with ECG of 29-Nov-2024 06:20, Sinus rhythm has replaced Atrial flutter Vent. rate has decreased by 72 bpm Confirmed by Rob Bhakta ([id number]) on 11/30/2024 8:58:10 PM Referred By: REFERRED SELF Confirmed By: Rob Bhakta
== END 2024-11-29 15:44 | disposition left against medical advice (07) | DRG 310 ==
LOC: ED 06:09 → EDINP 10:56